=== PATIENT | female | born 1960 | race Caucasian/White ===

== ENCOUNTER 2018-05-10 07:23 | Day surgery (SDC) | payer OTHER ==
[2018-05-10] MEDS ORDERED: FENTAnyl 50 MCG/ML VIAL (09:45)
[2018-05-10] MEDS ORDERED: MIDAZOLAM 1 MG/ML 2 ML INJ ×2 (09:45→09:46)
== END 2018-05-10 12:56 | disposition home or self-care (01) ==
LOC: GIL 07:23
DX: Z12.11 Encounter for screening for malignant neoplasm of colon (principal); K62.1 Rectal polyp; K64.8 Other hemorrhoids; I10 Essential (primary) hypertension
CPT/HCPCS: 45380; 88305